=== PATIENT | female | born 1990 | race Caucasian/White ===

== ENCOUNTER 2017-01-02 06:24 | Emergency (ER) | payer MEDICAID, OTHER ==
[~2017-01-02] VITALS: Ht 162.6 cm; Wt 78.8 kg
[2017-01-02 06:26] VITALS: BP 137/98
[2017-01-02] MEDS ORDERED: PHENAZOPYRIDINE 200 MG TABLET PO ONE (07:30)
[2017-01-02] MEDS ORDERED: PHENAZOPYRIDINE 200 MG TABLET ONE (07:42)
== END 2017-01-02 08:13 | disposition home or self-care (01) ==
LOC: ED 07:50
DX: B37.3 Candidiasis of vulva and vagina (principal); N30.90 Cystitis, unspecified without hematuria; Z88.6 Allergy status to analgesic agent
CPT/HCPCS: 81001; 87086; 99284

== ENCOUNTER 2018-01-01 22:53 | Emergency (ER) | payer SELFPAY ==
[~2018-01-01] VITALS: Ht 152.4 cm; Wt 71.9 kg
[2018-01-01] MEDS ORDERED: HYDROcodone/APAP 5/325 TABLET PO STA (23:19)
[2018-01-01] MEDS ORDERED: HYDROcodone/APAP 5/325 TABLET ONE (23:24)
[2018-01-01] MEDS ORDERED: CEPHALEXIN 500 MG CAPSULE ONE (23:25)
[2018-01-01] MEDS ORDERED: CEPHALEXIN 500 MG CAPSULE PO ONE (23:30)
[2018-01-01 23:40] VITALS: BP 138/92
== END 2018-01-01 23:43 | disposition home or self-care (01) ==
LOC: ED 23:40
DX: L03.116 Cellulitis of left lower limb (principal); F17.210 Nicotine dependence, cigarettes, uncomplicated
CPT/HCPCS: 99283